=== PATIENT | female | born 1955 | race Caucasian/White ===

== ENCOUNTER → 2018-11-06 07:21 | Outpatient (CLI) | payer MEDICAID | END | disposition home or self-care (01) | LOC: D.US 10-30 10:30 | PROVIDERS: ATTEND Nurse Practitioner Family | DX: R10.11 Right upper quadrant pain (principal) ==

== ENCOUNTER 2021-03-02 06:37 | Day surgery (SDC) | payer BC, MEDICAID ==
[~2021-03-02] VITALS: Ht 167.6 cm; Wt 81.8 kg
[2021-03-02 07:49] LABS: BASOPHILS 1.4 % (0-2); EOSINOPHILS 3.2 % (0-7); HEMOGLOBIN 12.2 g/dL (12-16); LYMPHOCYTES 35.9 % (15-50); MCH 28.1 pg (26.0-34.0); MCHC 32.2 g/dL (31.0-37.0); MCV 87.2 fL (80.0-100.0); MEAN PLATELET VOLUME 9.3 fL (7.4-10.4); NEUTROPHILS 52.5 % (40-80); PLATELET COUNT 264 10x3/uL (130-400); RBC 4.36 10x6/uL (4.00-5.40); RDW 15.3 % (11.5-14.5); WBC 9.3 10x3/uL (4.8-10.8)
[2021-03-02 08:02] LABS: CALC OSMOLALITY 285 mosm/kg (275-300); CALCIUM 8.5 mg/dL (8.5-10.1); CARBON DIOXIDE 29.7 mmol/L (21.0-32.0); CHLORIDE - SERUM 106 mmol/L (98-107); CREATININE - SERUM 0.7 mg/dL (0.6-1.3); GLUCOSE 90 mg/dL (74-106); POTASSIUM - SERUM 3.8 mmol/L (3.5-5.1); SODIUM 143 mmol/L (136-145); UREA NITROGEN 15 mg/dL (7-18); eGFR NON AFRICAN AMERICAN 90 mL/min (90-120)
[2021-03-02 08:35] LABS: INR 1.11 (0.85-1.17); PROTIME 13.3 SECONDS (11.6-15.0)
[2021-03-02 08:51] VITALS: BP 141/80; Ht 167.6 cm; Wt 81.8 kg
[2021-03-02] MEDS ORDERED: LISINOPRIL10 MG PO (09:09)
[2021-03-02] MEDS ORDERED: PROZAC10 MG PO (09:09)
[2021-03-02 09:45] LABS: APTT 27.4 SECONDS (22.8-39.4)
--- NOTE | 2021-03-02 11:45 | NUR ---
IV REMOVED WITH TIP INTACT, WHEELED OUT TO PT CAR.
== END 2021-03-02 11:45 | disposition home or self-care (01) ==
LOC: D.CT 06:37
PROVIDERS: General Practice; ATTEND Nurse Practitioner Family
DX: R22.1 Localized swelling, mass and lump, neck (principal)